=== PATIENT | male | born 1995 | race Two or more races ===

== ENCOUNTER 2017-12-03 22:58 | Emergency (ER) | payer SELFPAY ==
[2017-12-03] MEDS ORDERED: FAMOTIDINE 20 MG/NACL 50 ML IV ONE (23:33)
[2017-12-03] MEDS ORDERED: ONDANSETRON 4 MG/2 ML VIAL IVP ONE (23:33)
[2017-12-03] MEDS ORDERED: NS 1,000 ML IV ONE (23:33)
[2017-12-04 00:16] LABS: PLATELET COUNT 255 10^3/uL (150-400)
[2017-12-04] MEDS ORDERED: LIDOCAINE 2% VISCOUS 15 ML UDCUP PO ONE (00:30)
[2017-12-04] MEDS ORDERED: MAG HYDROX/AL HYDROX/SIMETH 30 ML UDCUP PO ONE (00:30)
[2017-12-04] MEDS ORDERED: HYOSCYAMINE SULFATE 0.125 MG TAB PO ONE (00:30)
[2017-12-04 00:37] VITALS: BP 112/64
--- NOTE | 2017-12-04 01:04 | EDPHY ---
H & P Stated Complaint: abdominal pain, headache x 2 hours, drank milk- lactose intol Time Seen by Provider: 12/03/17 23:15 HPI/ROS: Chief complaint: Abdominal pain History of present illness: This is a 22-year-old male who presents to the emergency department for evaluation of abdominal pain. The pain began this morning after drinking milk. He has a history of lactose intolerance. Since then he has had epigastric discomfort. Nausea and vomiting. He has also had diarrhea. He denies other associated signs or symptoms including no fevers, no blood in the vomit or stools. No urinary symptoms. Review of systems: A 10 point review of systems was obtained and other than described above was negative - Personal History Current Tetanus/Diphtheria Vaccine: Unsure Current Tetanus Diphtheria and Acellular Pertussis (TDAP): Unsure - Medical/Surgical History Hx Asthma: No Hx Chronic Respiratory Disease: No Hx Diabetes: No Hx Cardiac Disease: No Hx Renal Disease: No Hx Cirrhosis: No Hx Alcoholism: No Hx HIV/AIDS: No Hx Splenectomy or Spleen Trauma: No Other PMH: lactose intolerant - Social History Smoking Status: Current every day smoker - Physical Exam Exam: General Appearance: Alert, nontoxic. Eyes: Pupils equal and round no pallor or injection. ENT, Mouth: Mucous membranes moist. Respiratory: There are no retractions, lungs are clear to auscultation. Cardiovascular: Regular rate and rhythm. Gastrointestinal: Bowel sounds are normal. The abdomen is soft. It is nondistended. There is mild epigastric tenderness. No other tenderness including no Harper sign, no McBurney's point tenderness, no peritoneal signs. Neurological: Alert and oriented x4. Strength and sensation intact and symmetrical. Skin: Warm and dry, no rashes. Musculoskeletal: Neck is supple non tender. Extremities are symmetrical, full range of motion. Psychiatric: Patient is oriented X 3, there is no agitation. Constitutional: Initial Vital Signs Temperature (C) 36.4 C 12/03/17 22:59 Heart Rate 74 12/03/17 22:59 Respiratory Rate 16 12/03/17 22:59 Blood Pressure 124/66 H 12/03/17 22:59 O2 Sat (%) 97 12/03/17 22:59 O2 Delivery Mode Room Air Allergies/Adverse Reactions: No Known Allergies Allergy (Unverified 12/03/17 23:05) Medical Decision Making ED Course/Re-evaluation: Patient seen under the supervision of my secondary supervising physician Dr. Ruiz Graff. Patient presents to the emergency department for epigastric pain with nausea, vomiting and diarrhea. He is nontoxic. Vital signs are stable. Serial abdominal exams are performed and remain benign. Blood studies are unremarkable. I do not believe further evaluation including imaging studies are warranted. He has been symptomatically treated with resolution of symptoms. Home care is discussed. He is to follow up with a primary care doctor for recheck. Strict return precautions were given. Differential Diagnosis: Included but not limited to gastritis, gastroenteritis, peptic ulcer disease, biliary tract disease, pancreatitis - Data Points Laboratory Results: Laboratory Results 12/03/17 23:40 12/03/17 23:40 12/03/17 12/03/17 23:40 23:40 WBC 6.39 10^3/uL 10^3/uL (3.80-9.50) RBC 4.78 10^6/uL 10^6/uL (4.40-6.38) Hgb 15.1 g/dL g/dL (13.7-17.5) Hct 42.5 % % (40.0-51.0) MCV 88.9 fL fL (81.5-99.8) MCH 31.6 pg pg (27.9-34.1) MCHC 35.5 g/dL g/dL (32.4-36.7) RDW 12.1 % % (11.5-15.2) Plt Count 255 10^3/uL 10^3/uL (150-400) MPV 10.0 fL fL (8.7-11.7) Neut % (Auto) 58.4 % % (39.3-74.2) Lymph % (Auto) 29.7 % % (15.0-45.0) [place] % (Auto) 8.0 % % (4.5-13.0) Eos % (Auto) 3.0 % % (0.6-7.6) Baso % (Auto) 0.6 % % (0.3-1.7) Nucleat RBC Rel Count 0.0 % % (0.0-0.2) Absolute Neuts (auto) 3.73 10^3/uL 10^3/uL (1.70-6.50) Absolute Lymphs (auto) 1.90 10^3/uL 10^3/uL (1.00-3.00) Absolute Monos (auto) 0.51 10^3/uL 10^3/uL (0.30-0.80) Absolute Eos (auto) 0.19 10^3/uL 10^3/uL (0.03-0.40) Absolute Basos (auto) 0.04 10^3/uL 10^3/uL (0.02-0.10) Absolute Nucleated RBC 0.00 10^3/uL 10^3/uL (0-0.01) Immature Gran % 0.3 % % (0.0-1.1) Immature Gran # 0.02 10^3/uL 10^3/uL (0.00-0.10) Sodium 144 mEq/L mEq/L (135-145) Potassium 3.9 mEq/L mEq/L (3.5-5.2) Chloride 106 mEq/L mEq/L (97-110) Carbon Dioxide 24 mEq/l mEq/l (22-31) Anion Gap 14 mEq/L mEq/L (8-16) BUN 10 mg/dL mg/dL (7-23) Creatinine 0.7 mg/dL mg/dL (0.7-1.3) Estimated GFR > 60 Glucose 81 mg/dL mg/dL (70-100) Calcium 8.8 mg/dL mg/dL (8.5-10.4) Total Bilirubin 0.5 mg/dL mg/dL (0.1-1.4) Conjugated Bilirubin 0.2 mg/dL mg/dL (0.0-0.5) Unconjugated Bilirubin 0.3 mg/dL mg/dL (0.0-1.1) AST 41 IU/L IU/L (17-59) ALT 44 IU/L IU/L (21-72) Alkaline Phosphatase 107 IU/L IU/L (38-126) Total Protein 6.9 g/dL g/dL (6.3-8.2) Albumin 4.3 g/dL g/dL (3.5-5.0) Lipase 78 IU/L IU/L (23-300) Medications Given: Discontinued Medications Al Hydroxide/Mg Hydroxide (Maalox Susp) 30 ml PO ONCE ONE Stop: 12/04/17 00:31 Last Admin: 04/06/18 00:34 Dose: 30 ml Hyoscyamine Sulfate (Levsin, Hyomax-Sl) 0.25 mg PO ONCE ONE Stop: 12/04/17 00:31 Last Admin: 12/04/17 00:34 Dose: 0.25 mg Sodium Chloride (Ns) 1,000 mls @ 0 mls/hr IV EDNOW ONE; Wide Open PRN Reason: Protocol Stop: 12/03/17 23:34 Last Admin: 12/03/17 23:46 Dose: 1,000 mls Famotidine/Sodium Chloride (Pepcid 20 Mg (Premix)) 50 mls @ 200 mls/hr IV EDNOW ONE Stop: 12/03/17 23:47 Last Admin: 12/03/17 23:45 Dose: 50 mls Lidocaine (Lidocaine 2% Viscous) 15 ml PO ONCE ONE Stop: 12/04/17 00:31 Last Admin: 12/04/17 00:34 Dose: 15 ml Ondansetron HCl (Zofran) 4 mg IVP EDNOW ONE Stop: 12/03/17 23:34 Last Admin: 12/03/17 23:46 Dose: 4 mg Departure - Departure Disposition: Home, Routine, Self-Care Clinical Impression: Abdominal pain Qualifiers: Abdominal location: epigastric Qualified Code(s): R10.13 - Epigastric pain Condition: Good Instructions: Acute Abdominal Pain (ED) Additional Instructions: Follow-up with a primary care doctor in 1-2 days for recheck Use [id number] Zantac for symptom control If symptoms worsen or new symptoms develop return immediately to the emergency room Referrals: NONE *PRIMARY CARE P,. [Primary Care Provider] - As per Instructions [facility],. [Clinic] - As per Instructions
== END 2017-12-04 01:09 | disposition home or self-care (01) ==
DX: R10.13 Epigastric pain (principal); E86.9 Volume depletion, unspecified; F17.200 Nicotine dependence, unspecified, uncomplicated
CPT/HCPCS: 96374; J2405